=== PATIENT | female | born 1995 | race African-American/Black ===

== ENCOUNTER 2016-09-03 16:03 | Emergency (ER) | payer OTHER ==
[~2016-09-03] VITALS: Ht 165.1 cm; Wt 80.0 kg
[~2016-09-03 16:03] MED LIST: MACR100C PO; NAPR500 PO; Z.0.BCPILL PO
[2016-09-03 16:04] VITALS: BP 137/74; PULSE 81; RESP 15; TEMP 98.2; O2SAT 98
[2016-09-03] MEDS ORDERED: SODIUM CHLOR 0.9% 1000 ML INJ 1,000 ML IV ONE (16:58)
[2016-09-03] MEDS ORDERED: KETOROLAC TROMETHAMINE 30 MG/ML (IVP) VIAL IVP ONE (17:00)
[2016-09-03] MEDS ORDERED: METOCLOPRAMIDE HCL 10 MG/2 ML VIAL IVP ONE (17:00)
[2016-09-03] MEDS ORDERED: methylPREDNISolone SOD SUCC 125 MG/2 ML VIAL IVP ONE (17:00)
[2016-09-03] MEDS ORDERED: RESP: ALBUTEROL 2.5 MG/IPRATROPIUM 0.5 MG NEB (SCH) INH ONE (17:00)
--- NOTE | 2016-09-03 17:02 | PD ---
HPI Chief Complaint: Respiratory Symptoms Time Seen by Provider: 16:55 Travel History International Travel<30 days: No Contact w/Intl Traveler<30days: No Traveled to known affect area: No History of Present Illness HPI This is a 21-year-old female who reports a history of asthma, migraines, endometriosis. She reports that for 5 years she has suffered from daily headaches, occasional migraine headaches come a formally diagnosed by a neurologist in [place] last year. She reports for the past 3 days she has had a throbbing left-sided headache, nausea, photophobia and phonophobia consistent with previous migraine headaches. She has been using ibuprofen but symptoms persist. She also endorses asthma exacerbation since yesterday. She reports wheezing, cough, unrelieved with her albuterol. She does endorse 3 episodes of loose stools this morning as well. Denies fevers or chills, sore throat, rash, abdominal pain, dysuria, flank pain. She has no other complaints at this time. PFSH Past Medical History Hx Anticoagulant Therapy: No Asthma: Yes Cardiovascular Problems: No Chemotherapy: No Cerebrovascular Accident: No Developmental Delay: No Diabetes: No Diminished Hearing: No Genitourinary: Yes (1 , MEDICALLY NECESSARY) Respiratory: Yes (asthma) Immunizations Current: Yes ?: Not Menopausal: No : 1 Para: 0 : 1 Past Surgical History Hysterectomy: No Tonsillectomy: Yes (AND ADENOIDS) Social History Alcohol Use: No Tobacco Use: No Substance Use: Yes (MARIJUANA) Allergies-Medications (Allergen,Severity, Reaction): Coded Allergies: Iodine (Verified Allergy, Severe, ITCH, 09/03/16) Shellfish (Verified Allergy, Severe, 09/03/16) Shrimp (Verified Allergy, Severe, 09/03/16) Reported Meds & Prescriptions Reported Meds & Active Scripts Active Prednisone 20 Mg Tab 20 Mg PO BID 5 Days Macrobid (Nitrofurantoin Macrocrystals) 100 Mg Cap 100 Mg PO BID Naprosyn (Naproxen) 500 Mg Tab 500 Mg PO BID PRN Reported Control Pills (Miscellaneous Medication) Tab 1 Tab PO DAILY Review of Systems Except as stated in HPI: all other systems reviewed are Neg Physical Exam Narrative GENERAL: Well-developed well-nourished female in no acute distress SKIN: Warm and dry. HEAD: Atraumatic. Normocephalic. EYES: Pupils equal and round. No scleral icterus. No injection or drainage. ENT: No nasal bleeding or discharge. Mucous membranes pink and moist. NECK: Trachea midline. No JVD. No lymphadenopathy. Neck supple with full range of motion. CARDIOVASCULAR: Regular rate and rhythm. No murmur appreciated. RESPIRATORY: No accessory muscle use. Mild wheezing bilaterally. No crackles. GASTROINTESTINAL: Abdomen soft, non-tender, nondistended. Hepatic and splenic margins not palpable. MUSCULOSKELETAL: No obvious deformities. No edema. NEUROLOGICAL: Awake and alert. No obvious cranial nerve deficits. Motor grossly within normal limits. Normal speech. Data Data Last Documented VS Vital Signs Date Time Temp Pulse Resp B/P Pulse Ox O2 Delivery O2 Flow Rate FiO2 09/03/16 16:04 98.2 81 15 137/74 98 Orders Iv Access Insert/Monitor (09/03/16 16:58) Ketorolac Inj (Toradol Inj) (09/03/16 17:00) Metoclopramide Inj (Reglan Inj) (09/03/16 17:00) Sodium Chlor 0.9% 1000 Ml Inj (Ns 1000 M (09/03/16 16:58) Methylprednisolone So Succ Inj (Solumedr (09/03/16 17:00) Albuterol-Ipratropium Neb (Duoneb Neb) (09/03/16 17:00) Ed Urine Pregnancytest Poc (09/03/16 17:02) [facility] Medical Decision Making Medical Screen Exam Complete: Yes Emergency Medical Condition: Yes Medical Record Reviewed: Yes Differential Diagnosis Migraine without aura, tension headache, sinusitis, asthma exacerbation, pneumonia, bronchitis Narrative Course 21-year-old female with long-standing history of migraines presents with a 3 day history of left-sided pulsating headache with photophobia, phonophobia and nausea consistent with previous migraines. She has normal neurological examination and I don't suspect mass or a spontaneous subarachnoid hemorrhage based on this history. She also reports cough and wheezing since yesterday. She does have some wheezing bilaterally which is not tachypneic or tachycardic or hypoxic. She began to have. Plan is for Reglan, Toradol, fluids, Solu- Medrol, reassessment. Upon reexamination the patient feels significantly improved. The patient will be discharged with a short course of prednisone for her asthma exacerbation. Diagnosis Primary Impression: Asthma exacerbation Additional Impression: Migraine Qualified Code: G43.009 - Migraine without aura and without status migrainosus , not intractable Additional Instructions: Medication as prescribed. Stay well hydrated well-nourished. Follow-up closely with primary care physician. Return for any emergent medical conditions. Med/Other Pt SpecificInfo: Prescription(s) given Scripts Prednisone 20 Mg Tab20 Mg PO BID 5 Days Ref 0 Prov:CoyConnie DO 09/03/16 Disposition: 01 DISCHARGE HOME Condition: Stable Mionr Conroy Sep 03, 2016 17:02
[2016-09-03] MEDS ORDERED: PRED20 PO (19:01)
== END 2016-09-03 19:16 | disposition home or self-care (01) ==
LOC: NEPB 16:03
DX: G43.009 Migraine without aura, not intractable, without status migrainosus (principal); J45.901 Unspecified asthma with (acute) exacerbation
CPT/HCPCS: 84703; 94664; 96374; 96375; 99284; J1885; J2765; J2930; J7030

== ENCOUNTER 2017-06-02 04:57 | Emergency (ER) | payer SELFPAY ==
[~2017-06-02] VITALS: Ht 165.1 cm; Wt 85.0 kg
[~2017-06-02 04:57] MED LIST changes: +PRED20 PO
[2017-06-02 05:02] VITALS: BP 143/93; PULSE 84; RESP 16; TEMP 98.3; O2SAT 99
[2017-06-02] MEDS ORDERED: NAPR250T4 PO (05:15)
[2017-06-02] MEDS ORDERED: AMOX500T PO (05:25)
[2017-06-02] MEDS ORDERED: AMOXICILLIN (TRIHYDRATE) 500 MG CAP PO ONE (05:30)
[2017-06-02] MEDS ORDERED: ACETAMINOPHEN/HYDROcodone 325 MG/5 MG TAB PO ONE (05:30)
--- NOTE | 2017-06-02 05:30 | PD ---
HPI Chief Complaint: Facial Pain or Swelling Time Seen by Provider: 05:23 Travel History International Travel<30 days: No Contact w/Intl Traveler<30days: No Traveled to known affect area: No History of Present Illness HPI 21-year-old black female presents to emergency Department with complaints of left jaw pain for past several months. She's been seen by ENT in a dentist and was diagnosed with TMJ. She states that her dental appliance does not fit properly and falls out routinely.. She states the pain is been much worse than usual. She is allegedly taking her naproxen without relief. The pain is worsened by cold and grinding her teeth. No alleviating factors. She denies any other associated symptoms. No fever chills. No runny nose, cough or congestion PFSH Past Medical History Narrative Medical Asthma, TMJ Hx Anticoagulant Therapy: No Asthma: Yes Cardiovascular Problems: No Chemotherapy: No Cerebrovascular Accident: No Developmental Delay: No Diabetes: No Diminished Hearing: No Genitourinary: Yes (1 , MEDICALLY NECESSARY) Musculoskeletal: Yes (TMJ) Reproductive: Yes (ENDOMETREOSIS) Respiratory: Yes (asthma) Immunizations Current: Yes Tetanus Vaccination: < 5 Years ?: Not LMP: 06/02/17 Menopausal: No : 1 Para: 0 : 1 Past Surgical History Gynecologic Surgery: Yes (LAPROSCOPIC FOR ENDOMETREOSIS) Hysterectomy: No Tonsillectomy: Yes (AND ADENOIDS) Social History Alcohol Use: No Tobacco Use: No Substance Use: Yes (MARIJUANA) Allergies-Medications (Allergen,Severity, Reaction): Coded Allergies: iodine (Unverified Allergy, Severe, ITCH, 06/02/17) potassium iodide (Unverified Allergy, Severe, ITCH, 06/02/17) povidone-iodine (Unverified Allergy, Severe, ITCH, 06/02/17) shellfish derived (Unverified Allergy, Severe, 06/02/17) shrimp (Unverified Allergy, Severe, 06/02/17) sodium iodide (Unverified Allergy, Severe, ITCH, 06/02/17) sodium iodide (Unverified Allergy, Severe, ITCH, 06/02/17) Reported Meds & Prescriptions Reported Meds & Active Scripts Active Amoxicillin 500 Mg Tab 500 Mg PO TID Reported Naproxen 250 Mg Tab 250 Mg PO TID Review of Systems General / Constitutional: No: Fever Eyes: No: Visual changes HENT: Positive: Dental Difficulties, Earache, No: Headaches, Sore Throat, Congestion, Neck Stiffness, Neck Pain, Ear Discharge Cardiovascular: No: Chest Pain or Discomfort Respiratory: No: Shortness of Breath Gastrointestinal: No: Abdominal Pain Genitourinary: No: Dysuria Musculoskeletal: No: Pain Skin: No Rash Neurologic: No: Weakness Psychiatric: No: Depression Endocrine: No: Polydipsia Hematologic/Lymphatic: No: Easy Bruising Physical Exam Narrative GENERAL: Well-developed, well-nourished in no acute distress. Nontoxic appearing. HEAD: Normocephalic, atraumatic. EYES: Pupils equal round and reactive. Extraocular motions intact. No scleral icterus. No injection or drainage. ENT: TMs clear without erythema. The external auditory canals clear. Nose: clear . Posterior pharynx is pink and moist. No tonsillar edema or exudate. Uvula midline. Airway patent. Patient has dental caries and tooth 14, 15, 16. Patient has point tenderness to the left TMJ. There is no erythema or edema. She has difficulty opening closing her jaw. NECK: Trachea midline.Supple, nontender, moves head freely. No central bony tenderness or spasm. CARDIOVASCULAR: Regular rate and rhythm without murmurs, gallops, or rubs. RESPIRATORY: Clear to auscultation. Breath sounds equal bilaterally. No wheezes , rales, or rhonchi. GASTROINTESTINAL: Abdomen soft, non-tender, nondistended. No hepato-splenomegaly , or palpable masses. No guarding. EXTREMITIES: No clubbing, cyanosis, or edema. No joint tenderness, effusion, or edema noted. BACK: Nontender without deformity or crepitance. No flank tenderness. Data Data Last Documented VS Vital Signs Date Time Temp Pulse Resp B/P (MAP) Pulse Ox O2 Delivery O2 Flow Rate FiO2 06/02/17 05:12 84 16 06/02/17 05:02 98.3 143/93 (110) 99 Room Air Orders Orders Amoxicillin (Trimox) (06/02/17 05:30) Acetamin-Hydrocod 325-5 Mg ([place] 5-325 (06/02/17 05:30) Ed Discharge Order (06/02/17 05:25) MDM Medical Decision Making Medical Screen Exam Complete: Yes Emergency Medical Condition: Yes Medical Record Reviewed: Yes Differential Diagnosis MDM: Moderate Differential diagnoses: Dental abscess, dental caries, osteitis, cellulitis, TMJ Narrative Course Patient has dental caries and left TMJ. Diagnosis Primary Impression: Dental caries Additional Impression: left TMJ Patient Instructions: General Instructions Additional Instructions: Rest. [place] gargles. [place] oil on cotton balls. Amoxicillin. Continue her naproxen follow-up with a dentist as soon as possible. And return to the ER if any problems. Med/Other Pt SpecificInfo: Prescription(s) given Scripts Amoxicillin (Amoxicillin) 500 Mg Tab 500 MG PO TID for Infection, #30 TAB 0 Refills Prov: Destiny Mccord MD 06/02/17 Disposition: 01 DISCHARGE HOME Condition: Stable Patricio Ugarte Jun 02, 2017 05:30
== END 2017-06-02 05:41 | disposition home or self-care (01) ==
LOC: NEPD 04:57
DX: K02.9 Dental caries, unspecified (principal); M26.602 Left temporomandibular joint disorder, unspecified; J45.909 Unspecified asthma, uncomplicated
CPT/HCPCS: 99283